=== PATIENT | female | born 1935 | race Caucasian/White ===

== ENCOUNTER 2018-04-22 16:08 | Inpatient (IN) | payer SELFPAY ==
[~2018-04-22] VITALS: Ht 167.6 cm; Wt 80.7 kg
[2018-04-22] MEDS ORDERED: SODIUM CHLORIDE 0.9% 1,000 ML IV ONE (17:09)
[2018-04-22] MEDS ORDERED: ASPIRIN 325MG EC TABLET PO ONE (17:45)
[2018-04-22 18:02] LABS: BASOPHILS % 1.1 % (0.0-2.0); EOSINOPHILS % 1.1 % (0.0-5.0); HEMATOCRIT. 47.7 % (36.0-48.0); HEMOGLOBIN. 15.8 g/dL (12.0-16.0); LYMPHOCYTES % 21.2 % (20.0-50.0); MEAN CORPUSCULAR HEMOGLOBIN 28.7 pg (28.0-32.0); MEAN CORPUSCULAR VOLUME 86.7 fL (81.0-99.0); MEAN PLATELET VOLUME 9.6 fl (7.4-10.4); MONOCYTES % 9.9 % (2.0-8.0); NEUTROPHILS % 66.7 % (40.0-76.0); PLATELET 199 x1000/uL (130-400); RED CELL DISTRIBUTION WIDTH 13.9 % (11.6-14.6)
[2018-04-22 18:09] LABS: INR 1.1; PROTHROMBIN TIME 10.7 sec (9.1-11.1)
[2018-04-22 18:10] LABS: CHLORIDE 102 mEq/L (98-107)
[2018-04-22] MEDS ORDERED: DILTIAZEM HCL 30MG TABLET PO ONE (18:15)
[2018-04-22] MEDS ORDERED: ONDANSETRON HCL 4MG/2ML INJ IV STA (19:20)
[2018-04-22] MEDS ORDERED: MORPHINE SULFATE 4 MG/ML CPJ (NOT FOR IM USE) IV STA (19:20)
[2018-04-22 22:04] LABS: CLARITY URINE CLEAR (CLEAR); COLOR URINE YELLOW (YELLOW); KETONES URINE NEGATIVE (NEGATIVE); LEUKOCYTE ESTERASE URINE 2+ (NEGATIVE); NITRITE URINE NEGATIVE (NEGATIVE); OCCULT BLOOD URINE NEGATIVE (NEGATIVE); PH URINE 6.5 (4.5-8.0); PROTEIN URINE NEGATIVE (NEGATIVE); UROBILINOGEN URINE 0.2 E.U./dL (0.2-1.0)
[2018-04-23] MEDS ORDERED: ONDANSETRON HCL 4MG/2ML INJ IV PRN (00:15)
[2018-04-23] MEDS ORDERED: CLONIDINE 0.1MG TABLET PO PRN (00:15)
[2018-04-23] MEDS ORDERED: MAGNESIUM/ALUMINUM HYDROXIDE/SIMETHICONE 30ML UDC PO PRN (00:15)
[2018-04-23] MEDS ORDERED: ACETAMINOPHEN 325MG TABLET PO PRN (00:15)
[2018-04-23 01:30] VITALS: BP 115/71
[2018-04-23] MEDS ORDERED: SODIUM CHLORIDE 0.45% 1,000 ML IV SCH (02:00)
[2018-04-23 04:00] VITALS: BP 105/58
[2018-04-23 06:50] LABS: CREATINE KINASE 34 IU/L (26-192); CREATINE KINASE MB FRACTION 1.2 ng/mL (0.5-3.6)
[2018-04-23 08:00] VITALS: BP 97/60
[2018-04-23] MEDS ORDERED: METOPROLOL TARTRATE 25MG TABLET PO SCH (09:00)
[2018-04-23 12:00] VITALS: BP 140/76
[2018-04-23 12:39] VITALS: BP 110/75
== END 2018-04-23 13:45 | disposition home or self-care (01) ==
LOC: ER 16:08 → 5WST 20:36 → EDBEDREQ 22:32 → ENRESERV 23:52 → SUPCPDRO 04-23 00:07
PROVIDERS: ADMIT Hospitalist; ATTEND Hospitalist
DX: K83.8 Other specified diseases of biliary tract (principal); I48.91 Unspecified atrial fibrillation; Z87.11 Personal history of peptic ulcer disease; Z90.49 Acquired absence of other specified parts of digestive tract; Z90.710 Acquired absence of both cervix and uterus; Z90.722 Acquired absence of ovaries, bilateral; I25.10 Atherosclerotic heart disease of native coronary artery without angina pectoris; I10 Essential (primary) hypertension; G47.30 Sleep apnea, unspecified
CPT/HCPCS: 36415; 71045; 74176; 74181; 80053; 81003; 82550; 82553; 83690; 83880; 84484; 85025; 85610; 85730; 87086; 93005; 93306; 93970; J2270; J2405; J7030

== ENCOUNTER 2018-09-15 12:51 | Emergency (ER) | payer MEDICAID ==
[~2018-09-15] VITALS: Ht 167.6 cm; Wt 85.0 kg
[2018-09-15 13:05] VITALS: BP 139/99
== END 2018-09-15 15:30 | disposition left against medical advice (07) ==
LOC: ER 13:24
DX: Z53.21 Procedure and treatment not carried out due to patient leaving prior to being seen by health care provider (principal)

== ENCOUNTER 2018-11-12 14:19 | Emergency (ER) | payer MEDICAID ==
[~2018-11-12] VITALS: Ht 167.6 cm; Wt 80.0 kg
[2018-11-12] MEDS ORDERED: KETOROLAC 60MG/2ML VIAL IM ONE (14:45)
[2018-11-12 14:59] LABS: EOSINOPHILS % 1.9 % (0.0-5.0); HEMATOCRIT. 46.7 % (36.0-48.0); HEMOGLOBIN. 15.5 g/dL (12.0-16.0); LYMPHOCYTES % 19.8 % (20.0-50.0); MEAN CORPUSCULAR VOLUME 87.1 fL (81.0-99.0); MEAN PLATELET VOLUME 9.1 fl (7.4-10.4); MONOCYTES % 10.9 % (2.0-8.0); NEUTROPHILS % 66.4 % (40.0-76.0); PLATELET 205 x1000/uL (130-400); RED BLOOD CELL COUNT 5.36 mill/uL (4.2-5.4); RED CELL DISTRIBUTION WIDTH 13.9 % (11.6-14.6)
[2018-11-12 15:06] LABS: CHLORIDE 107 mEq/L (98-107)
[2018-11-12 18:26] VITALS: BP 145/100
== END 2018-11-12 18:46 | disposition home or self-care (01) ==
LOC: ER 14:19
DX: M25.551 Pain in right hip (principal); R10.31 Right lower quadrant pain; I69.398 Other sequelae of cerebral infarction; G93.89 Other specified disorders of brain
CPT/HCPCS: 36415; 70450; 73502; 74176; 80053; 85025; 96372; 99284; J1885

== ENCOUNTER 2018-12-03 12:45 | Emergency (ER) | payer MEDICAID ==
[~2018-12-03] VITALS: Ht 162.6 cm; Wt 80.0 kg
[2018-12-03] MEDS ORDERED: MORPHINE SULFATE 4 MG/ML CPJ (NOT FOR IM USE) IV STA (13:01)
[2018-12-03] MEDS ORDERED: SODIUM CHLORIDE 0.9% 1,000 ML IV ONE (13:01)
[2018-12-03] MEDS ORDERED: ONDANSETRON HCL 4MG/2ML INJ IV STA (13:01)
[2018-12-03 13:20] LABS: BASOPHILS % 1.2 % (0.0-2.0); EOSINOPHILS % 1.4 % (0.0-5.0); HEMOGLOBIN. 16.8 g/dL (12.0-16.0); LYMPHOCYTES % 25.6 % (20.0-50.0); MEAN CORPUSCULAR HEMOGLOBIN 28.6 pg (28.0-32.0); MEAN CORPUSCULAR VOLUME 86.8 fL (81.0-99.0); MEAN PLATELET VOLUME 9.2 fl (7.4-10.4); MONOCYTES % 9.3 % (2.0-8.0); NEUTROPHILS % 62.5 % (40.0-76.0); PLATELET 193 x1000/uL (130-400); RED BLOOD CELL COUNT 5.87 mill/uL (4.2-5.4)
[2018-12-03 13:27] LABS: CHLORIDE 105 mEq/L (98-107); PROTHROMBIN TIME 10.7 sec (9.6-11.0)
[2018-12-03 14:31] LABS: CLARITY URINE CLEAR (CLEAR); COLOR URINE YELLOW (YELLOW); KETONES URINE NEGATIVE (NEGATIVE); LEUKOCYTE ESTERASE URINE TRACE (NEGATIVE); NITRITE URINE NEGATIVE (NEGATIVE); OCCULT BLOOD URINE NEGATIVE (NEGATIVE); PROTEIN URINE NEGATIVE (NEGATIVE); SPECIFIC GRAVITY URINE 1.005 (1.005-1.030); UROBILINOGEN URINE 0.2 E.U./dL (0.2-1.0)
[2018-12-03] MEDS ORDERED: CEFTRIAXONE 1 G PREMIX 50 ML IV NR (15:45)
[2018-12-03 17:21] VITALS: BP 135/91
== END 2018-12-03 18:32 | disposition home or self-care (01) ==
LOC: ER 12:45
DX: S20.211A Contusion of right front wall of thorax, initial encounter (principal); N39.0 Urinary tract infection, site not specified; I48.91 Unspecified atrial fibrillation; R55 Syncope and collapse; Y93.89 Activity, other specified; W01.0XXA Fall on same level from slipping, tripping and stumbling without subsequent striking against object, initial encounter; Y92.018 Other place in single-family (private) house as the place of occurrence of the external cause; K57.90 Diverticulosis of intestine, part unspecified, without perforation or abscess without bleeding; N28.1 Cyst of kidney, acquired; I10 Essential (primary) hypertension
CPT/HCPCS: 36415; 71101; 74176; 80053; 81003; 83690; 85025; 85610; 93005; 96361; 96365; 96375; 99284; J0696; J2270; J2405; J7030; Z7610

== ENCOUNTER 2019-01-03 13:12 | Inpatient (IN) | payer MEDICAID ==
[~2019-01-03] VITALS: Ht 170.2 cm; Wt 81.6 kg
[2019-01-03] MEDS ORDERED: FAMOTIDINE 20MG/2ML VIAL IV STA ×2 (13:41→15:05)
[2019-01-03] MEDS ORDERED: ONDANSETRON HCL 4MG/2ML INJ IV STA (13:41)
[2019-01-03 14:30] LABS: HEMATOCRIT. 49.1 % (36.0-48.0); HEMOGLOBIN. 16.5 g/dL (12.0-16.0); MEAN CORPUSCULAR VOLUME 86.4 fL (81.0-99.0); MEAN PLATELET VOLUME 9.2 fl (7.4-10.4); PLATELET 190 x1000/uL (130-400); RED BLOOD CELL COUNT 5.68 mill/uL (4.2-5.4); RED CELL DISTRIBUTION WIDTH 14.2 % (11.6-14.6)
[2019-01-03 14:38] LABS: CHLORIDE 108 mEq/L (98-107); PROTHROMBIN TIME 10.6 sec (9.6-11.0)
[2019-01-03] MEDS ORDERED: KETOROLAC 30MG/ML VIAL IV ONE (15:00)
[2019-01-03] MEDS ORDERED: VISCOUS LIDOCAINE 2% 15 ML UDC PO STA (15:05)
[2019-01-03] MEDS ORDERED: DICYCLOMINE 10 MG/5 ML ORAL SYR PO STA (15:05)
[2019-01-03] MEDS ORDERED: MAGNESIUM/ALUMINUM HYDROXIDE/SIMETHICONE 30ML UDC PO STA (15:05)
[2019-01-03 15:24] LABS: PLATELET ESTIMATE NORMAL
[2019-01-03 15:51] LABS: CLARITY URINE CLOUDY (CLEAR); COLOR URINE DARK YELLOW (YELLOW); KETONES URINE TRACE (NEGATIVE); LEUKOCYTE ESTERASE URINE 2+ (NEGATIVE); NITRITE URINE NEGATIVE (NEGATIVE); OCCULT BLOOD URINE TRACE (NEGATIVE); PH URINE 5.5 (4.5-8.0); PROTEIN URINE 1+ (NEGATIVE); SPECIFIC GRAVITY URINE 1.031 (1.005-1.030)
[2019-01-03] MEDS ORDERED: CEFTRIAXONE 1 G PREMIX 50 ML IV ONE (16:00)
[2019-01-03] MEDS ORDERED: ENOXAPARIN 60MG/0.6ML SYR SUBCUT ONE (16:15)
[2019-01-03] MEDS ORDERED: NITROGLYCERIN 0.4MG TABLET SL SL PRN (16:30)
[2019-01-03] MEDS ORDERED: IPRATROPIUM/ALBUTEROL 0.5-3(2.5)MG/3ML NEB INH PRN (16:30)
[2019-01-03] MEDS ORDERED: ACETAMINOPHEN 325MG TABLET PO PRN (16:30)
[2019-01-03] MEDS ORDERED: MAGNESIUM/ALUMINUM HYDROXIDE/SIMETHICONE 30ML UDC PO PRN (16:30)
[2019-01-03] MEDS ORDERED: CLONIDINE 0.1MG TABLET PO PRN (16:30)
[2019-01-03] MEDS ORDERED: GUAIFENESIN 200MG/10ML SUGAR FREE UDC PO PRN (16:30)
[2019-01-03] MEDS ORDERED: ONDANSETRON HCL 4MG/2ML INJ IV PRN (16:30)
[2019-01-03] MEDS ORDERED: DOCUSATE SODIUM 100MG CAPSULE PO PRN (16:30)
[2019-01-03] MEDS ORDERED: TRAMADOL 50MG TABLET PO PRN (16:49)
[2019-01-03] MEDS ORDERED: KETOROLAC 15MG/ML VIAL IV PRN (17:00)
[2019-01-03] MEDS: SODIUM CHLORIDE 0.9% 1,000 ML IV SCH (17:21)
[2019-01-03 18:00] VITALS: BP 105/66
[2019-01-03] MEDS: DILTIAZEM HCL 60MG TABLET PO SCH ×2 (18:00→23:54)
[2019-01-03] MEDS ORDERED: ACET650S22 PO (18:37)
[2019-01-03] MEDS ORDERED: PANT40TA4 PO (18:37)
[2019-01-03] MEDS ORDERED: CLOP75TA4 PO (18:37)
[2019-01-03] MEDS ORDERED: FAMO20TA8 PO (18:37)
[2019-01-03] MEDS: METOCLOPRAMIDE 10MG/10 ML UDC PO SCH (18:48)
[2019-01-03] MEDS ORDERED: LEVOFLOXACIN 500MG PREMIX 100 ML IV SCH (20:00)
[2019-01-03] MEDS: ASCORBIC ACID 500 MG TABLET PO SCH (20:48)
[2019-01-03] MEDS: SUCRALFATE 1 G/10 ML UDC PO SCH (20:50)
[2019-01-03] MEDS ORDERED: ZOLPIDEM TARTRATE 5MG TABLET PO PRN (21:00)
[2019-01-04 01:33] VITALS: BP 128/78
[2019-01-04 04:00] VITALS: BP 99/60
[2019-01-04] MEDS: ENOXAPARIN 80MG/0.8ML SYR SUBCUT SCH ×2 (04:44→16:46)
[2019-01-04] MEDS: DILTIAZEM HCL 60MG TABLET PO SCH ×3 (06:00→17:37)
[2019-01-04 08:00] VITALS: BP 108/61
[2019-01-04] MEDS: FAMOTIDINE 20MG TABLET PO SCH (09:26)
[2019-01-04] MEDS: ASCORBIC ACID 500 MG TABLET PO SCH ×2 (09:27→20:27)
[2019-01-04] MEDS: ASPIRIN 325MG EC TABLET PO SCH (09:27)
[2019-01-04] MEDS: ZINC SULFATE 220 MG ( 50 ) CAPSULE PO SCH (09:27)
[2019-01-04] MEDS: SUCRALFATE 1 G/10 ML UDC PO SCH ×4 (09:35→20:27)
[2019-01-04] MEDS: METOCLOPRAMIDE 10MG/10 ML UDC PO SCH ×3 (09:35→17:44)
[2019-01-04 12:00] VITALS: BP 101/69
[2019-01-04] MEDS: SODIUM CHLORIDE 0.9% 1,000 ML IV SCH (12:24)
[2019-01-04 16:00] VITALS: BP 118/77
[2019-01-04] MEDS ORDERED: CEFTRIAXONE 1 G PREMIX 50 ML IV SCH (16:30)
[2019-01-04] MEDS: CEFTRIAXONE 1 G PREMIX 50 ML IV SCH (18:30)
[2019-01-04 20:00] VITALS: BP 108/78
[2019-01-04] MEDS ORDERED: LEVOFLOXACIN 250MG PREMIX 50 ML IV SCH (20:00)
[2019-01-05] VITALS: BP 122/74
[2019-01-05] MEDS: DILTIAZEM HCL 60MG TABLET PO SCH ×4 (00:11→17:19)
[2019-01-05] MEDS: SODIUM CHLORIDE 0.9% 1,000 ML IV SCH ×3 (02:15→17:21)
[2019-01-05 04:00] VITALS: BP 104/64
[2019-01-05] MEDS: ENOXAPARIN 80MG/0.8ML SYR SUBCUT SCH ×2 (04:34→17:06)
[2019-01-05 07:55] VITALS: BP 119/67
[2019-01-05] MEDS: SUCRALFATE 1 G/10 ML UDC PO SCH ×3 (09:06→17:05)
[2019-01-05] MEDS: ASPIRIN 325MG EC TABLET PO SCH (09:06)
[2019-01-05] MEDS: FAMOTIDINE 20MG TABLET PO SCH (09:06)
[2019-01-05] MEDS: ZINC SULFATE 220 MG ( 50 ) CAPSULE PO SCH (09:06)
[2019-01-05] MEDS: METOCLOPRAMIDE 10MG/10 ML UDC PO SCH ×3 (09:06→17:05)
[2019-01-05] MEDS: ASCORBIC ACID 500 MG TABLET PO SCH (09:07)
[2019-01-05 12:39] VITALS: BP 108/68
[2019-01-05 13:13] VITALS: BP 119/95
[2019-01-05 16:00] VITALS: BP 102/60
[2019-01-05] MEDS: CEFTRIAXONE 1 G PREMIX 50 ML IV SCH (17:21)
== END 2019-01-05 19:00 | disposition home or self-care (01) | DRG 241 ==
LOC: ER 13:12 → 7WST 16:03 → EDBEDREQ 16:09 → EDBEDREQSVC 16:09 → ENRESERV 16:15
PROVIDERS: ADMIT Internal Medicine; ATTEND Internal Medicine
DX: K29.70 Gastritis, unspecified, without bleeding (principal); I48.91 Unspecified atrial fibrillation; N39.0 Urinary tract infection, site not specified; I10 Essential (primary) hypertension; R10.9 Unspecified abdominal pain; Z90.49 Acquired absence of other specified parts of digestive tract; Z91.81 History of falling
CPT/HCPCS: 36415; 71045; 80061; 82962; 83036; 84484; 87077; 87186; 87493; 93005; 93970; 99285; J0696; J1650; J1885; J1956; J2405; J3490; J8597

== ENCOUNTER 2019-01-14 13:29 | Inpatient (IN) | payer MEDICAID, OTHER ==
[~2019-01-14] VITALS: Ht 170.2 cm; Wt 83.9 kg
[~2019-01-14 13:29] MED LIST: ACET650S22 PO; CLOP75TA4 PO; FAMO20TA8 PO; PANT40TA4 PO
[2019-01-14 14:12] LABS: HEMATOCRIT. 50.2 % (36.0-48.0); HEMOGLOBIN. 16.7 g/dL (12.0-16.0); MEAN CORPUSCULAR VOLUME 86.8 fL (81.0-99.0); MEAN PLATELET VOLUME 9.7 fl (7.4-10.4); PLATELET 231 x1000/uL (130-400); RED BLOOD CELL COUNT 5.78 mill/uL (4.2-5.4); RED CELL DISTRIBUTION WIDTH 14.3 % (11.6-14.6)
[2019-01-14 14:15] LABS: CHLORIDE 105 mEq/L (98-107)
[2019-01-14 14:16] LABS: PROTHROMBIN TIME 10.7 sec (9.6-11.0)
[2019-01-14 14:20] LABS: ETHANOL BLOOD < 10 mg/dL
[2019-01-14 14:23] LABS: LDL CHOLESTEROL 143 mg/dL (5-100)
[2019-01-14 15:18] LABS: PLATELET ESTIMATE NORMAL
[2019-01-14] MEDS ORDERED: MORPHINE SULFATE 4 MG/ML CPJ (NOT FOR IM USE) IV ONE (16:00)
[2019-01-14] MEDS ORDERED: DIPHENHYDRAMINE 50MG/ML VIAL IV ONE (16:45)
[2019-01-14 16:47] LABS: CLARITY URINE CLEAR (CLEAR); COLOR URINE YELLOW (YELLOW); KETONES URINE NEGATIVE (NEGATIVE); LEUKOCYTE ESTERASE URINE TRACE (NEGATIVE); NITRITE URINE NEGATIVE (NEGATIVE); OCCULT BLOOD URINE NEGATIVE (NEGATIVE); PH URINE 6.5 (4.5-8.0); PROTEIN URINE NEGATIVE (NEGATIVE); SPECIFIC GRAVITY URINE 1.006 (1.005-1.030); UROBILINOGEN URINE 0.2 E.U./dL (0.2-1.0)
[2019-01-14 17:07] LABS: *AMPHETAMINES SCREEN URINE NEGATIVE (NEGATIVE); *BARBITURATES SCREEN URINE NEGATIVE (NEGATIVE); *BENZODIAZEPINES SCREEN URINE NEGATIVE (NEGATIVE); *COCAINE SCREEN URINE NEGATIVE (NEGATIVE)
[2019-01-14 17:08] LABS: CANNABINOID URINE SCREEN NEGATIVE (NEGATIVE); METHADONE URINE SCREEN NEGATIVE (NEGATIVE); OPIATES URINE SCREEN NEGATIVE (NEGATIVE); PHENCYCLIDINE URINE SCREEN NEGATIVE (NEGATIVE)
[2019-01-14] MEDS ORDERED: GUAIFENESIN 200MG/10ML SUGAR FREE UDC PO PRN (21:15)
[2019-01-14] MEDS ORDERED: CLONIDINE 0.1MG TABLET PO PRN (21:15)
[2019-01-14] MEDS ORDERED: IPRATROPIUM/ALBUTEROL 0.5-3(2.5)MG/3ML NEB INH PRN (21:15)
[2019-01-14] MEDS ORDERED: LEVOFLOXACIN 500MG PREMIX 100 ML IV SCH (21:15)
[2019-01-14] MEDS ORDERED: MAGNESIUM/ALUMINUM HYDROXIDE/SIMETHICONE 30ML UDC PO PRN (21:15)
[2019-01-14] MEDS ORDERED: ACETAMINOPHEN 325MG TABLET PO PRN (21:15)
[2019-01-14] MEDS ORDERED: NITROGLYCERIN 0.4MG TABLET SL SL PRN (21:15)
[2019-01-14] MEDS ORDERED: ZOLPIDEM TARTRATE 5MG TABLET PO PRN (21:30)
[2019-01-14] MEDS ORDERED: TRAMADOL 50MG TABLET PO PRN (21:30)
[2019-01-14 23:00] VITALS: BP 116/83
[2019-01-15] MEDS: ATORVASTATIN CALCIUM 20MG TABLET PO SCH ×2 (00:14→20:39)
[2019-01-15] MEDS: LEVOFLOXACIN 250MG PREMIX 50 ML IV SCH ×2 (00:15→23:29)
[2019-01-15] MEDS: ENOXAPARIN 100MG/ML SYR SUBCUT SCH ×3 (00:15→22:47)
[2019-01-15] MEDS ORDERED: CEFTRIAXONE 1 G PREMIX 50 ML IV SCH (01:00)
[2019-01-15 04:00] VITALS: BP 115/70
[2019-01-15] MEDS: SUCRALFATE 1 G/10 ML UDC PO SCH ×4 (06:21→20:39)
[2019-01-15 08:00] VITALS: BP 124/76
[2019-01-15] MEDS: DOCUSATE SODIUM 100MG CAPSULE PO PRN (08:35)
[2019-01-15] MEDS: ZINC SULFATE 220 MG ( 50 ) CAPSULE PO SCH (08:36)
[2019-01-15] MEDS: CLOPIDOGREL 75MG TABLET PO SCH (08:36)
[2019-01-15] MEDS: ASCORBIC ACID 500 MG TABLET PO SCH ×2 (08:36→20:39)
[2019-01-15] MEDS: FAMOTIDINE 20MG TABLET PO SCH (08:36)
[2019-01-15] MEDS ORDERED: FAMOTIDINE 20MG TABLET PO SCH (09:00)
[2019-01-15 12:00] VITALS: BP 124/76
[2019-01-15 17:18] VITALS: BP 136/59
[2019-01-15 20:00] VITALS: BP 123/75
[2019-01-15 20:53] LABS: T4 FREE 0.99 ng/dL (0.76-1.46)
[2019-01-15 21:02] LABS: FOLIC ACID (FOLATE) SERUM 16.9 ng/mL (>5.38)
[2019-01-16 00:15] VITALS: BP 127/93
[2019-01-16] MEDS: CEFTRIAXONE 1 G PREMIX 50 ML IV SCH (01:51)
[2019-01-16 04:00] VITALS: BP 134/76
[2019-01-16] MEDS: SUCRALFATE 1 G/10 ML UDC PO SCH ×4 (06:02→20:42)
[2019-01-16 08:00] VITALS: BP 127/86
[2019-01-16] MEDS: ASCORBIC ACID 500 MG TABLET PO SCH ×2 (09:25→20:42)
[2019-01-16] MEDS: FAMOTIDINE 20MG TABLET PO SCH (09:25)
[2019-01-16] MEDS: CLOPIDOGREL 75MG TABLET PO SCH (09:25)
[2019-01-16] MEDS: ZINC SULFATE 220 MG ( 50 ) CAPSULE PO SCH (09:25)
[2019-01-16 12:00] VITALS: BP 122/76
[2019-01-16] MEDS: ONDANSETRON HCL 4MG/2ML INJ IV PRN (12:16)
[2019-01-16] MEDS: ENOXAPARIN 100MG/ML SYR SUBCUT SCH ×2 (12:17→23:04)
[2019-01-16 16:00] VITALS: BP 122/87
[2019-01-16 20:00] VITALS: BP 124/61
[2019-01-16] MEDS: ATORVASTATIN CALCIUM 20MG TABLET PO SCH (20:42)
[2019-01-16] MEDS: LEVOFLOXACIN 250MG PREMIX 50 ML IV SCH (23:05)
[2019-01-17] VITALS: BP 114/69
[2019-01-17] MEDS: CEFTRIAXONE 1 G PREMIX 50 ML IV SCH (00:35)
[2019-01-17] MEDS: ONDANSETRON HCL 4MG/2ML INJ IV PRN (03:42)
[2019-01-17 04:00] VITALS: BP 115/79
[2019-01-17] MEDS: SUCRALFATE 1 G/10 ML UDC PO SCH ×4 (05:55→21:16)
[2019-01-17 08:25] VITALS: BP 108/68
[2019-01-17] MEDS: ASCORBIC ACID 500 MG TABLET PO SCH ×2 (09:11→21:16)
[2019-01-17] MEDS: FAMOTIDINE 20MG TABLET PO SCH (09:11)
[2019-01-17] MEDS: ZINC SULFATE 220 MG ( 50 ) CAPSULE PO SCH (09:11)
[2019-01-17] MEDS: CLOPIDOGREL 75MG TABLET PO SCH (09:11)
[2019-01-17] MEDS: DOCUSATE SODIUM 100MG CAPSULE PO PRN (09:15)
[2019-01-17] MEDS ORDERED: NA PHOS,M-B/NA PHOS,DI-BA ENEMA 118ML PR NR (10:15)
[2019-01-17] MEDS ORDERED: BISACODYL 10MG SUPP PR PRN (10:15)
[2019-01-17] MEDS ORDERED: NA PHOS,M-B/NA PHOS,DI-BA ENEMA 118ML PR PRN (10:30)
[2019-01-17] MEDS: LACTULOSE 20G/30ML UDC PO SCH ×3 (10:58→16:49)
[2019-01-17 11:48] VITALS: BP 120/82
[2019-01-17 15:14] VITALS: BP 114/72
[2019-01-17] MEDS: DOCUSATE SODIUM 100MG CAPSULE PO SCH (16:49)
[2019-01-17] MEDS: RIVAROXABAN 20 MG TABLET PO SCH (16:50)
[2019-01-17 20:00] VITALS: BP 113/70
[2019-01-17] MEDS ORDERED: POLYETHYLENE GLYCOL 3350 (17GM) 1 DOSE PACK PO SCH (21:00)
[2019-01-17] MEDS: ATORVASTATIN CALCIUM 20MG TABLET PO SCH (21:16)
[2019-01-18] VITALS: BP 107/74
[2019-01-18] MEDS: LEVOFLOXACIN 250MG PREMIX 50 ML IV SCH ×2 (00:31→23:22)
[2019-01-18] MEDS: CEFTRIAXONE 1 G PREMIX 50 ML IV SCH (01:31)
[2019-01-18 04:00] VITALS: BP 97/65
[2019-01-18] MEDS: SUCRALFATE 1 G/10 ML UDC PO SCH ×4 (05:46→20:55)
[2019-01-18 08:16] VITALS: BP 129/72
[2019-01-18] MEDS: ZINC SULFATE 220 MG ( 50 ) CAPSULE PO SCH (09:32)
[2019-01-18] MEDS: DOCUSATE SODIUM 100MG CAPSULE PO SCH ×2 (09:32→16:21)
[2019-01-18] MEDS: ONDANSETRON HCL 4MG/2ML INJ IV PRN (09:32)
[2019-01-18] MEDS: FAMOTIDINE 20MG TABLET PO SCH (09:32)
[2019-01-18] MEDS: ASCORBIC ACID 500 MG TABLET PO SCH ×2 (09:32→20:55)
[2019-01-18 11:37] VITALS: BP 140/97
[2019-01-18] MEDS: METOCLOPRAMIDE HCL 5MG TABLET PO SCH ×3 (12:44→20:55)
[2019-01-18 15:39] VITALS: BP 104/71
[2019-01-18] MEDS: RIVAROXABAN 20 MG TABLET PO SCH (16:21)
[2019-01-18 20:00] VITALS: BP 112/73
[2019-01-18] MEDS: ATORVASTATIN CALCIUM 20MG TABLET PO SCH (20:55)
[2019-01-19] VITALS: BP 118/76
[2019-01-19] MEDS: CEFTRIAXONE 1 G PREMIX 50 ML IV SCH (01:39)
[2019-01-19 04:00] VITALS: BP 116/70
[2019-01-19] MEDS: SUCRALFATE 1 G/10 ML UDC PO SCH ×4 (06:21→20:54)
[2019-01-19] MEDS: METOCLOPRAMIDE HCL 5MG TABLET PO SCH ×4 (06:21→20:54)
[2019-01-19 08:00] VITALS: BP 146/92
[2019-01-19] MEDS: ASCORBIC ACID 500 MG TABLET PO SCH ×2 (09:29→20:54)
[2019-01-19] MEDS: ZINC SULFATE 220 MG ( 50 ) CAPSULE PO SCH (09:29)
[2019-01-19] MEDS: FAMOTIDINE 20MG TABLET PO SCH (09:29)
[2019-01-19] MEDS: DOCUSATE SODIUM 100MG CAPSULE PO SCH ×2 (09:29→17:31)
[2019-01-19 10:30] LABS: CHLORIDE 106 mEq/L (98-107)
[2019-01-19 10:31] LABS: BASOPHILS % 1.3 % (0.0-2.0); EOSINOPHILS % 3.5 % (0.0-5.0); HEMATOCRIT. 46.5 % (36.0-48.0); HEMOGLOBIN. 15.4 g/dL (12.0-16.0); LYMPHOCYTES % 24.4 % (20.0-50.0); MEAN CORPUSCULAR HEMOGLOBIN 28.7 pg (28.0-32.0); MEAN CORPUSCULAR VOLUME 86.8 fL (81.0-99.0); MEAN PLATELET VOLUME 9.8 fl (7.4-10.4); MONOCYTES % 11.6 % (2.0-8.0); NEUTROPHILS % 59.2 % (40.0-76.0); PLATELET 194 x1000/uL (130-400); RED BLOOD CELL COUNT 5.35 mill/uL (4.2-5.4); RED CELL DISTRIBUTION WIDTH 14.2 % (11.6-14.6)
[2019-01-19 12:00] VITALS: BP 110/59
[2019-01-19 16:00] VITALS: BP 121/91
[2019-01-19] MEDS: RIVAROXABAN 20 MG TABLET PO SCH (17:31)
[2019-01-19 20:00] VITALS: BP 116/87
[2019-01-19] MEDS: ATORVASTATIN CALCIUM 20MG TABLET PO SCH (20:54)
[2019-01-20] VITALS: BP 126/74
[2019-01-20] MEDS: CEFTRIAXONE 1 G PREMIX 50 ML IV SCH (02:05)
[2019-01-20] MEDS: LEVOFLOXACIN 250MG PREMIX 50 ML IV SCH (02:47)
[2019-01-20 04:00] VITALS: BP 118/82
[2019-01-20] MEDS: METOCLOPRAMIDE HCL 5MG TABLET PO SCH ×4 (06:45→20:34)
[2019-01-20] MEDS: SUCRALFATE 1 G/10 ML UDC PO SCH ×4 (06:45→20:34)
[2019-01-20 08:00] VITALS: BP 122/60
[2019-01-20] MEDS: FAMOTIDINE 20MG TABLET PO SCH (08:15)
[2019-01-20] MEDS: DOCUSATE SODIUM 100MG CAPSULE PO SCH ×2 (08:15→16:51)
[2019-01-20] MEDS: ASCORBIC ACID 500 MG TABLET PO SCH ×2 (08:15→20:34)
[2019-01-20] MEDS: ZINC SULFATE 220 MG ( 50 ) CAPSULE PO SCH (08:15)
[2019-01-20 12:00] VITALS: BP 134/74
[2019-01-20 16:00] VITALS: BP 141/88
[2019-01-20] MEDS: RIVAROXABAN 20 MG TABLET PO SCH (16:51)
[2019-01-20 20:00] VITALS: BP 115/83
[2019-01-20] MEDS: ATORVASTATIN CALCIUM 20MG TABLET PO SCH (20:34)
[2019-01-21] VITALS: BP_SYST 126; BP_SYST 155; BP_DIAS 84; BP_DIAS 99
[2019-01-21] MEDS: LEVOFLOXACIN 250MG PREMIX 50 ML IV SCH (00:09)
[2019-01-21] MEDS: CEFTRIAXONE 1 G PREMIX 50 ML IV SCH (00:45)
[2019-01-21 04:00] VITALS: BP 133/82
[2019-01-21] MEDS: SUCRALFATE 1 G/10 ML UDC PO SCH ×4 (06:02→20:49)
[2019-01-21] MEDS: METOCLOPRAMIDE HCL 5MG TABLET PO SCH ×4 (06:02→20:49)
[2019-01-21 08:00] VITALS: BP 133/72
[2019-01-21] MEDS: ASCORBIC ACID 500 MG TABLET PO SCH ×2 (08:45→20:49)
[2019-01-21] MEDS: ZINC SULFATE 220 MG ( 50 ) CAPSULE PO SCH (08:45)
[2019-01-21] MEDS: FAMOTIDINE 20MG TABLET PO SCH (08:45)
[2019-01-21] MEDS: DOCUSATE SODIUM 100MG CAPSULE PO SCH ×2 (08:45→16:21)
[2019-01-21 12:00] VITALS: BP 134/97
[2019-01-21 16:00] VITALS: BP 128/83
[2019-01-21] MEDS: RIVAROXABAN 20 MG TABLET PO SCH (17:23)
[2019-01-21 20:00] VITALS: BP 131/92
[2019-01-21] MEDS: ATORVASTATIN CALCIUM 20MG TABLET PO SCH (20:49)
[2019-01-22] VITALS (7 sets, daily range): BP systolic 109–155; BP diastolic 72–99
[2019-01-22] MEDS: CEFTRIAXONE 1 G PREMIX 50 ML IV SCH (01:58)
[2019-01-22] MEDS: LEVOFLOXACIN 250MG PREMIX 50 ML IV SCH (01:58)
[2019-01-22] MEDS: SUCRALFATE 1 G/10 ML UDC PO SCH ×4 (07:51→20:50)
[2019-01-22] MEDS: METOCLOPRAMIDE HCL 5MG TABLET PO SCH ×4 (07:51→20:50)
[2019-01-22] MEDS: FAMOTIDINE 20MG TABLET PO SCH (08:07)
[2019-01-22] MEDS: DOCUSATE SODIUM 100MG CAPSULE PO SCH ×2 (08:07→15:51)
[2019-01-22] MEDS: ASCORBIC ACID 500 MG TABLET PO SCH ×2 (08:07→20:50)
[2019-01-22] MEDS: ZINC SULFATE 220 MG ( 50 ) CAPSULE PO SCH (08:07)
[2019-01-22] MEDS: RIVAROXABAN 20 MG TABLET PO SCH (15:50)
[2019-01-22] MEDS: ATORVASTATIN CALCIUM 20MG TABLET PO SCH (20:50)
[2019-01-23] VITALS: BP 134/85
[2019-01-23 04:00] VITALS: BP 144/96
[2019-01-23] MEDS: METOCLOPRAMIDE HCL 5MG TABLET PO SCH (06:39)
[2019-01-23] MEDS: SUCRALFATE 1 G/10 ML UDC PO SCH (06:43)
[2019-01-23] MEDS ORDERED: CYANOCOBALAMIN 1000MCG/ML VIAL IM SCH (07:15)
[2019-01-23 08:00] VITALS: BP 136/89
[2019-01-23] MEDS: DOCUSATE SODIUM 100MG CAPSULE PO SCH (08:11)
[2019-01-23] MEDS: ASCORBIC ACID 500 MG TABLET PO SCH (08:11)
[2019-01-23] MEDS: ZINC SULFATE 220 MG ( 50 ) CAPSULE PO SCH (08:11)
[2019-01-23] MEDS: FAMOTIDINE 20MG TABLET PO SCH (08:11)
[2019-01-24 19:11] LABS: 25-HYDROXY VITAMIN D3 11 ng/mL (.)
== END 2019-01-23 10:53 | disposition home or self-care (01) | DRG 45 ==
LOC: ER 13:29 → 6WST 20:18 → EDBEDREQ 20:37 → EDBEDREQSVC 20:37 → EDBEDREQTM 20:37 → ENRESERV 21:06 → 5WST 01-15 11:52 → 6EST 01-21 11:40
PROVIDERS: ADMIT Internal Medicine; ATTEND Internal Medicine
DX: I63.81 Other cerebral infarction due to occlusion or stenosis of small artery (principal); G81.94 Hemiplegia, unspecified affecting left nondominant side; I48.91 Unspecified atrial fibrillation; D75.1 Secondary polycythemia; R13.10 Dysphagia, unspecified; R73.9 Hyperglycemia, unspecified; R47.81 Slurred speech; K21.9 Gastro-esophageal reflux disease without esophagitis; E78.5 Hyperlipidemia, unspecified; N39.0 Urinary tract infection, site not specified; I10 Essential (primary) hypertension; E78.00 Pure hypercholesterolemia, unspecified; Z53.20 Procedure and treatment not carried out because of patient's decision for unspecified reasons; Z90.49 Acquired absence of other specified parts of digestive tract; Z79.899 Other long term (current) drug therapy
CPT/HCPCS: 36415; 70544; 70551; 71045; 80061; 80305; 80320; 82306; 82607; 82746; 82962; 83036; 83721; 84439; 84443; 84481; 84484; 92523; 92610; 93005; 93306; 93880; 97112; 97116; 97162; 97166; 97530; 97535; 99291; J0696; J1200; J1650; J1956; J2270; J2405; J3420; J7050; J8597; G0480

== ENCOUNTER 2019-03-02 12:46 | Inpatient (IN) | payer MEDICAID ==
[~2019-03-02] VITALS: Ht 165.1 cm; Wt 80.7 kg
[2019-03-02] MEDS ORDERED: ONDANSETRON HCL 4MG/2ML INJ IV STA (13:13)
[2019-03-02] MEDS ORDERED: SODIUM CHLORIDE 0.9% 1,000 ML IV ONE (13:13)
[2019-03-02] MEDS ORDERED: MAGNESIUM/ALUMINUM HYDROXIDE/SIMETHICONE 30ML UDC PO STA (13:40)
[2019-03-02 13:43] LABS: BASOPHILS % 0.7 % (0.0-2.0); EOSINOPHILS % 0.6 % (0.0-5.0); HEMATOCRIT. 49.5 % (36.0-48.0); HEMOGLOBIN. 17.1 g/dL (12.0-16.0); LYMPHOCYTES % 15.2 % (20.0-50.0); MEAN CORPUSCULAR HEMOGLOBIN 29.5 pg (28.0-32.0); MEAN CORPUSCULAR VOLUME 85.4 fL (81.0-99.0); MEAN PLATELET VOLUME 9.7 fl (7.4-10.4); MONOCYTES % 8.4 % (2.0-8.0); NEUTROPHILS % 75.1 % (40.0-76.0); PLATELET 183 x1000/uL (130-400); RED CELL DISTRIBUTION WIDTH 14.1 % (11.6-14.6)
[2019-03-02] MEDS ORDERED: FAMOTIDINE 20MG/2ML VIAL IV ONE (13:45)
[2019-03-02 13:48] LABS: CHLORIDE 102 mEq/L (98-107); INR 1.1; PROTHROMBIN TIME 11.2 sec (9.6-11.0)
[2019-03-02 17:43] LABS: CLARITY URINE CLEAR (CLEAR); COLOR URINE YELLOW (YELLOW); KETONES URINE NEGATIVE (NEGATIVE); LEUKOCYTE ESTERASE URINE TRACE (NEGATIVE); NITRITE URINE NEGATIVE (NEGATIVE); OCCULT BLOOD URINE NEGATIVE (NEGATIVE); PROTEIN URINE NEGATIVE (NEGATIVE); SPECIFIC GRAVITY URINE 1.002 (1.005-1.030); UROBILINOGEN URINE 0.2 E.U./dL (0.2-1.0)
[2019-03-02] MEDS ORDERED: CEFTRIAXONE 1 G PREMIX 50 ML IV NR (18:00)
[2019-03-02] MEDS ORDERED: GUAIFENESIN 200MG/10ML SUGAR FREE UDC PO PRN (18:30)
[2019-03-02] MEDS ORDERED: ONDANSETRON HCL 4MG/2ML INJ IV PRN (18:30)
[2019-03-02] MEDS ORDERED: DOCUSATE SODIUM 100MG CAPSULE PO PRN (18:30)
[2019-03-02] MEDS ORDERED: ACETAMINOPHEN 325MG TABLET PO PRN (18:30)
[2019-03-02] MEDS ORDERED: TRAMADOL 50MG TABLET PO PRN (18:30)
[2019-03-02] MEDS ORDERED: MAGNESIUM/ALUMINUM HYDROXIDE/SIMETHICONE 30ML UDC PO PRN (18:30)
[2019-03-02] MEDS ORDERED: CLONIDINE 0.1MG TABLET PO PRN (18:30)
[2019-03-02] MEDS ORDERED: ZOLPIDEM TARTRATE 5MG TABLET PO PRN (18:30)
[2019-03-02] MEDS ORDERED: IPRATROPIUM/ALBUTEROL 0.5-3(2.5)MG/3ML NEB INH PRN (18:30)
[2019-03-02] MEDS ORDERED: NITROGLYCERIN 0.4MG TABLET SL SL PRN (18:30)
[2019-03-02 22:05] VITALS: BP 146/101
[2019-03-03] VITALS: BP 143/108
[2019-03-03] MEDS: CEFTRIAXONE 1 G PREMIX 50 ML IV SCH ×2 (00:29→22:47)
[2019-03-03 04:00] VITALS: BP 146/99
[2019-03-03] MEDS: METOCLOPRAMIDE 10MG/10 ML UDC PO SCH ×3 (06:25→18:45)
[2019-03-03] MEDS: SUCRALFATE 1 G/10 ML UDC PO SCH ×4 (06:26→22:17)
[2019-03-03 08:00] VITALS: BP 134/84
[2019-03-03] MEDS: DILTIAZEM HCL 30MG TABLET PO SCH ×4 (08:52→21:00)
[2019-03-03] MEDS: CLOPIDOGREL 75MG TABLET PO SCH (08:52)
[2019-03-03] MEDS: FAMOTIDINE 20MG TABLET PO SCH (08:52)
[2019-03-03 09:27] LABS: *AMPHETAMINES SCREEN URINE NEGATIVE (NEGATIVE)
[2019-03-03 09:28] LABS: *BARBITURATES SCREEN URINE NEGATIVE (NEGATIVE); *BENZODIAZEPINES SCREEN URINE NEGATIVE (NEGATIVE); *COCAINE SCREEN URINE NEGATIVE (NEGATIVE); OPIATES URINE SCREEN NEGATIVE (NEGATIVE)
[2019-03-03 09:30] LABS: CANNABINOID URINE SCREEN NEGATIVE (NEGATIVE); METHADONE URINE SCREEN NEGATIVE (NEGATIVE); PHENCYCLIDINE URINE SCREEN NEGATIVE (NEGATIVE)
[2019-03-03 12:27] VITALS: BP 96/62
[2019-03-03 18:00] VITALS: BP 142/97
[2019-03-03] MEDS: RIVAROXABAN 15 MG TABLET PO SCH (18:46)
[2019-03-03 20:00] VITALS: BP 105/70
[2019-03-03] MEDS ORDERED: ATORVASTATIN CALCIUM 10MG TABLET PO SCH (21:00)
[2019-03-04] VITALS: BP 115/67
[2019-03-04 04:00] VITALS: BP 134/66
[2019-03-04] MEDS: SUCRALFATE 1 G/10 ML UDC PO SCH ×3 (06:27→17:55)
[2019-03-04] MEDS: METOCLOPRAMIDE 10MG/10 ML UDC PO SCH ×3 (06:28→17:57)
[2019-03-04 08:00] VITALS: BP_SYST 113; BP_SYST 114; BP_DIAS 69; BP_DIAS 75
[2019-03-04] MEDS: CLOPIDOGREL 75MG TABLET PO SCH (11:09)
[2019-03-04] MEDS: DILTIAZEM HCL 30MG TABLET PO SCH ×3 (11:10→17:00)
[2019-03-04] MEDS: FAMOTIDINE 20MG TABLET PO SCH (11:10)
[2019-03-04 12:00] VITALS: BP 118/96
[2019-03-04 15:03] VITALS: BP 118/71
[2019-03-04 16:00] VITALS: BP 101/71
[2019-03-04] MEDS: RIVAROXABAN 15 MG TABLET PO SCH (17:56)
== END 2019-03-04 18:55 | disposition home or self-care (01) | DRG 241 ==
LOC: ER 12:46 → 6EST 17:24 → EDBEDREQ 18:04 → ENRESERV 19:54
PROVIDERS: ADMIT Internal Medicine; ATTEND Internal Medicine
DX: K29.70 Gastritis, unspecified, without bleeding (principal); I48.91 Unspecified atrial fibrillation; N39.0 Urinary tract infection, site not specified; K31.84 Gastroparesis; R74.0 Nonspecific elevation of levels of transaminase and lactic acid dehydrogenase [LDH]; R79.89 Other specified abnormal findings of blood chemistry; I10 Essential (primary) hypertension; Z79.02 Long term (current) use of antithrombotics/antiplatelets; Z86.73 Personal history of transient ischemic attack (TIA), and cerebral infarction without residual deficits; Z90.49 Acquired absence of other specified parts of digestive tract; Z90.710 Acquired absence of both cervix and uterus; Z79.899 Other long term (current) drug therapy; Z88.5 Allergy status to narcotic agent
CPT/HCPCS: 36415; 71045; 74176; 80061; 80305; 80320; 83036; 83880; 84484; 93005; 93970; 96361; 96374; 96375; 99285; J0696; J2405; J3490; J7030; J8597; G0480

== ENCOUNTER 2019-03-06 13:18 | Emergency (ER) | payer MEDICAID ==
[~2019-03-06] VITALS: Ht 157.5 cm; Wt 100.0 kg
[2019-03-06] MEDS ORDERED: ONDANSETRON HCL 4MG/2ML INJ IV STA (14:22)
[2019-03-06] MEDS ORDERED: VISCOUS LIDOCAINE 2% 15 ML UDC PO STA (14:22)
[2019-03-06] MEDS ORDERED: FAMOTIDINE 20MG/2ML VIAL IV STA (14:22)
[2019-03-06] MEDS ORDERED: MAGNESIUM/ALUMINUM HYDROXIDE/SIMETHICONE 30ML UDC PO STA (14:22)
[2019-03-06] MEDS ORDERED: MINERAL OIL ENEMA 133ML PR ONE (15:30)
[2019-03-06 16:09] LABS: CHLORIDE 102 mEq/L (98-107)
[2019-03-06 16:12] LABS: BASOPHILS % 0.7 % (0.0-2.0); EOSINOPHILS % 2.7 % (0.0-5.0); HEMATOCRIT. 44.8 % (36.0-48.0); HEMOGLOBIN. 15.5 g/dL (12.0-16.0); MEAN CORPUSCULAR HEMOGLOBIN 29.3 pg (28.0-32.0); MEAN CORPUSCULAR VOLUME 84.7 fL (81.0-99.0); MEAN PLATELET VOLUME 9.9 fl (7.4-10.4); MONOCYTES % 14.6 % (2.0-8.0); PLATELET 172 x1000/uL (130-400); RED BLOOD CELL COUNT 5.29 mill/uL (4.2-5.4); RED CELL DISTRIBUTION WIDTH 14.2 % (11.6-14.6)
[2019-03-06 16:15] LABS: INR 1.1
[2019-03-06 21:20] VITALS: BP 136/91
== END 2019-03-06 21:52 | disposition home or self-care (01) ==
LOC: ER 13:18
DX: K56.41 Fecal impaction (principal); K57.90 Diverticulosis of intestine, part unspecified, without perforation or abscess without bleeding; G89.29 Other chronic pain; I48.91 Unspecified atrial fibrillation; I10 Essential (primary) hypertension; Z86.73 Personal history of transient ischemic attack (TIA), and cerebral infarction without residual deficits; Z90.49 Acquired absence of other specified parts of digestive tract; Z88.6 Allergy status to analgesic agent; Z79.899 Other long term (current) drug therapy
CPT/HCPCS: 36415; 74176; 80053; 83690; 85025; 85610; 96374; 96375; 99284; J2405; J3490

== ENCOUNTER 2019-05-29 12:47 | Emergency (ER) | payer MEDICAID, OTHER ==
[~2019-05-29] VITALS: Ht 165.1 cm; Wt 68.0 kg
[2019-05-29] MEDS ORDERED: MAGNESIUM/ALUMINUM HYDROXIDE/SIMETHICONE 30ML UDC PO STA (14:00)
[2019-05-29] MEDS ORDERED: METOCLOPRAMIDE HCL 10MG/2ML VIAL IV STA (14:00)
[2019-05-29 14:11] LABS: BASOPHILS % 1.1 % (0.0-2.0); HEMATOCRIT. 49.5 % (36.0-48.0); HEMOGLOBIN. 16.5 g/dL (12.0-16.0); LYMPHOCYTES % 26.6 % (20.0-50.0); MEAN CORPUSCULAR VOLUME 87.1 fL (81.0-99.0); MEAN PLATELET VOLUME 9.9 fl (7.4-10.4); MONOCYTES % 8.7 % (2.0-8.0); NEUTROPHILS % 59.6 % (40.0-76.0); PLATELET 187 x1000/uL (130-400); RED BLOOD CELL COUNT 5.68 mill/uL (4.2-5.4); RED CELL DISTRIBUTION WIDTH 14.7 % (11.6-14.6)
[2019-05-29 14:24] LABS: CHLORIDE 108 mEq/L (98-107)
[2019-05-29 14:50] LABS: CLARITY URINE CLEAR (CLEAR); COLOR URINE YELLOW (YELLOW); KETONES URINE NEGATIVE (NEGATIVE); LEUKOCYTE ESTERASE URINE 1+ (NEGATIVE); NITRITE URINE NEGATIVE (NEGATIVE); OCCULT BLOOD URINE NEGATIVE (NEGATIVE); PH URINE 5.5 (4.5-8.0); PROTEIN URINE NEGATIVE (NEGATIVE); SPECIFIC GRAVITY URINE 1.009 (1.005-1.030); UROBILINOGEN URINE 0.2 E.U./dL (0.2-1.0)
[2019-05-29] MEDS ORDERED: IOHEXOL-300 100 ML BOTTLE ONE (16:50)
[2019-05-30] MEDS ORDERED: ADENOSINE 3 MG/ML 2ML VIAL IV ONE (07:21)
[2019-05-30] MEDS ORDERED: DILTIAZEM HCL 5MG/ML 5ML VIAL IV ONE ×2 (07:32→08:15)
[2019-05-30] MEDS ORDERED: DILTIAZEM HCL 60MG TABLET PO ONE (08:15)
[2019-05-30 08:19] LABS: BASOPHILS % 1.2 % (0.0-2.0); EOSINOPHILS % 2.4 % (0.0-5.0); HEMATOCRIT. 47.4 % (36.0-48.0); HEMOGLOBIN. 15.7 g/dL (12.0-16.0); LYMPHOCYTES % 17.9 % (20.0-50.0); MEAN CORPUSCULAR HEMOGLOBIN 28.8 pg (28.0-32.0); MEAN CORPUSCULAR VOLUME 86.8 fL (81.0-99.0); MEAN PLATELET VOLUME 9.6 fl (7.4-10.4); MONOCYTES % 7.9 % (2.0-8.0); NEUTROPHILS % 70.6 % (40.0-76.0); PLATELET 190 x1000/uL (130-400); RED BLOOD CELL COUNT 5.45 mill/uL (4.2-5.4); RED CELL DISTRIBUTION WIDTH 14.4 % (11.6-14.6)
[2019-05-30 08:23] LABS: CHLORIDE 108 mEq/L (98-107)
[2019-05-30 13:45] VITALS: BP 117/55
== END 2019-05-30 13:55 | disposition home or self-care (01) ==
LOC: ER 12:47
DX: I48.20 Chronic atrial fibrillation, unspecified (principal); R10.31 Right lower quadrant pain; I10 Essential (primary) hypertension; Z79.01 Long term (current) use of anticoagulants
CPT/HCPCS: 36415; 74177; 80053; 81003; 83690; 84484; 85025; 93005; 96374; 96375; 99284; J0153; J2765; J3490; Q9967

== ENCOUNTER 2019-08-10 15:55 | Inpatient (IN) | payer OTHER ==
[~2019-08-10] VITALS: Ht 162.6 cm; Wt 76.7 kg
[2019-08-10] MEDS ORDERED: SODIUM CHLORIDE 0.9% 1,000 ML IV ONE (18:34)
[2019-08-10 19:20] LABS: BASOPHILS % 1.3 % (0.0-2.0); EOSINOPHILS % 1.8 % (0.0-5.0); MEAN CORPUSCULAR HEMOGLOBIN 28.4 pg (28.0-32.0); MEAN CORPUSCULAR VOLUME 87.2 fL (81.0-99.0); MEAN PLATELET VOLUME 9.2 fl (7.4-10.4); MONOCYTES % 11.6 % (2.0-8.0); NEUTROPHILS % 59.3 % (40.0-76.0); PLATELET 187 x1000/uL (130-400); RED BLOOD CELL COUNT 5.27 mill/uL (4.2-5.4); RED CELL DISTRIBUTION WIDTH 14.6 % (11.6-14.6)
[2019-08-10 19:26] LABS: CHLORIDE 108 mEq/L (98-107)
[2019-08-10] MEDS ORDERED: ENOXAPARIN 100MG/ML SYR SUBCUT ONE (22:45)
[2019-08-10] MEDS ORDERED: ASPIRIN 325MG TABLET PO ONE (22:45)
[2019-08-11 04:54] LABS: CLARITY URINE CLEAR (CLEAR); COLOR URINE YELLOW (YELLOW); KETONES URINE NEGATIVE (NEGATIVE); LEUKOCYTE ESTERASE URINE NEGATIVE (NEGATIVE); NITRITE URINE NEGATIVE (NEGATIVE); OCCULT BLOOD URINE NEGATIVE (NEGATIVE); PH URINE 6.5 (4.5-8.0); PROTEIN URINE NEGATIVE (NEGATIVE); UROBILINOGEN URINE 0.2 E.U./dL (0.2-1.0)
[2019-08-11 08:00] VITALS: BP 166/94
[2019-08-11] MEDS ORDERED: ACETAMINOPHEN 325MG TABLET PO PRN ×2 (08:15→10:45)
[2019-08-11 09:00] VITALS: BP 155/89
[2019-08-11] MEDS ORDERED: CLOPIDOGREL 75MG TABLET PO SCH (09:00)
[2019-08-11] MEDS: PANTOPRAZOLE 40MG DR TABLET PO SCH (09:22)
[2019-08-11 09:30] VITALS: BP 141/85
[2019-08-11] MEDS ORDERED: MAGNESIUM/ALUMINUM HYDROXIDE/SIMETHICONE 30ML UDC PO PRN (10:45)
[2019-08-11] MEDS ORDERED: DOCUSATE SODIUM 100MG CAPSULE PO PRN (10:45)
[2019-08-11] MEDS ORDERED: NA PHOS,M-B/NA PHOS,DI-BA ENEMA 118ML PR PRN (10:45)
[2019-08-11] MEDS ORDERED: ONDANSETRON HCL 4MG/2ML INJ IV PRN (10:45)
[2019-08-11] MEDS ORDERED: DIPHENHYDRAMINE 50MG/ML VIAL IV PRN (10:45)
[2019-08-11] MEDS ORDERED: CLONIDINE 0.1MG TABLET PO PRN (10:45)
[2019-08-11] MEDS ORDERED: GUAIFENESIN 200MG/10ML SUGAR FREE UDC PO PRN (10:45)
[2019-08-11] MEDS ORDERED: HYDROCODONE/ACETAMINOPHEN 5/325MG TABLET PO PRN (10:45)
[2019-08-11] MEDS ORDERED: IPRATROPIUM/ALBUTEROL 0.5-3(2.5)MG/3ML NEB NEB PRN (10:45)
[2019-08-11] MEDS ORDERED: ACETAMINOPHEN 650MG SUPP PR PRN (10:45)
[2019-08-11] MEDS ORDERED: LORAZEPAM 0.5MG TABLET PO PRN (10:45)
[2019-08-11 11:27] LABS: BASOPHILS % 0.7 % (0.0-2.0); EOSINOPHILS % 1.5 % (0.0-5.0); HEMATOCRIT. 41.9 % (36.0-48.0); HEMOGLOBIN. 14.1 g/dL (12.0-16.0); LYMPHOCYTES % 20.9 % (20.0-50.0); MEAN CORPUSCULAR HEMOGLOBIN 29.1 pg (28.0-32.0); MEAN CORPUSCULAR VOLUME 86.6 fL (81.0-99.0); MEAN PLATELET VOLUME 9.6 fl (7.4-10.4); MONOCYTES % 10.4 % (2.0-8.0); NEUTROPHILS % 66.5 % (40.0-76.0); PLATELET 163 x1000/uL (130-400); RED BLOOD CELL COUNT 4.84 mill/uL (4.2-5.4); RED CELL DISTRIBUTION WIDTH 14.4 % (11.6-14.6)
[2019-08-11 12:00] VITALS: BP 156/90
[2019-08-11] MEDS: DEXT 5%/0.9% NACL 1,000 ML IV SCH ×2 (12:23→22:25)
[2019-08-11 13:02] LABS: T4 FREE 1.1 ng/dL (0.76-1.46)
[2019-08-11 13:03] LABS: INR 1.1; PROTHROMBIN TIME 11.3 sec (9.6-11.0)
[2019-08-11 14:06] LABS: *COCAINE SCREEN URINE NEGATIVE (NEGATIVE); METHADONE URINE SCREEN NEGATIVE (NEGATIVE); OPIATES URINE SCREEN NEGATIVE (NEGATIVE); PHENCYCLIDINE URINE SCREEN NEGATIVE (NEGATIVE)
[2019-08-11 14:07] LABS: *AMPHETAMINES SCREEN URINE NEGATIVE (NEGATIVE); CANNABINOID URINE SCREEN NEGATIVE (NEGATIVE)
[2019-08-11 14:08] LABS: *BARBITURATES SCREEN URINE NEGATIVE (NEGATIVE)
[2019-08-11 14:09] LABS: *BENZODIAZEPINES SCREEN URINE NEGATIVE (NEGATIVE)
[2019-08-11 16:00] VITALS: BP 131/92
[2019-08-11] MEDS: RIVAROXABAN 15 MG TABLET PO SCH (17:23)
[2019-08-11] MEDS: DILTIAZEM HCL 30MG TABLET PO SCH ×2 (17:23→22:24)
[2019-08-11 17:44] LABS: CREATINE KINASE 55 IU/L (26-192)
[2019-08-11 17:45] LABS: CREATINE KINASE MB FRACTION < 1.0 ng/mL (0.5-3.6)
[2019-08-11 20:00] VITALS: BP 174/106
[2019-08-12] VITALS: BP 142/103
[2019-08-12 04:00] VITALS: BP 148/99
[2019-08-12] MEDS: DILTIAZEM HCL 30MG TABLET PO SCH ×3 (06:48→21:35)
[2019-08-12 07:09] LABS: BASOPHILS % 0.5 % (0.0-2.0); EOSINOPHILS % 1.2 % (0.0-5.0); HEMATOCRIT. 42.9 % (36.0-48.0); HEMOGLOBIN. 14.2 g/dL (12.0-16.0); LYMPHOCYTES % 16.2 % (20.0-50.0); MEAN CORPUSCULAR HEMOGLOBIN 28.7 pg (28.0-32.0); MEAN CORPUSCULAR VOLUME 86.7 fL (81.0-99.0); MEAN PLATELET VOLUME 9.1 fl (7.4-10.4); MONOCYTES % 10.8 % (2.0-8.0); NEUTROPHILS % 71.3 % (40.0-76.0); PLATELET 182 x1000/uL (130-400); RED BLOOD CELL COUNT 4.95 mill/uL (4.2-5.4); RED CELL DISTRIBUTION WIDTH 14.4 % (11.6-14.6)
[2019-08-12 07:13] LABS: CHLORIDE 109 mEq/L (98-107)
[2019-08-12 07:22] LABS: LDL CHOLESTEROL 111 mg/dL (5-100)
[2019-08-12 07:23] LABS: CREATINE KINASE 36 IU/L (26-192); CREATINE KINASE MB FRACTION < 1.0 ng/mL (0.5-3.6); HDL CHOLESTEROL 37 mg/dL (40-59); T4 FREE 1.08 ng/dL (0.76-1.46)
[2019-08-12 08:00] VITALS: BP 135/92
[2019-08-12] MEDS: PANTOPRAZOLE 40MG DR TABLET PO SCH (09:43)
[2019-08-12] MEDS: DEXT 5%/0.9% NACL 1,000 ML IV SCH (10:40)
[2019-08-12 12:00] VITALS: BP 139/87
[2019-08-12 16:00] VITALS: BP 131/85
[2019-08-12] MEDS: RIVAROXABAN 15 MG TABLET PO SCH (17:41)
[2019-08-12 20:00] VITALS: BP 150/89
[2019-08-13] MEDS ORDERED: FAMOTIDINE 20MG TABLET PO SCH (07:40)
== END 2019-08-12 22:12 | DRG 861 ==
LOC: ER 15:55 → 7WST 08-11 01:37 → EDBEDREQ 08-11 02:06 → ENRESERV 08-11 03:59
PROVIDERS: ADMIT Internal Medicine; ATTEND Internal Medicine
DX: R53.1 Weakness (principal); G93.40 Encephalopathy, unspecified; I27.20 Pulmonary hypertension, unspecified; I48.20 Chronic atrial fibrillation, unspecified; I10 Essential (primary) hypertension; K21.9 Gastro-esophageal reflux disease without esophagitis; R62.7 Adult failure to thrive; F03.90 Unspecified dementia, unspecified severity, without behavioral disturbance, psychotic disturbance, mood disturbance, and anxiety; S90.32XA Contusion of left foot, initial encounter; W18.39XA Other fall on same level, initial encounter; Z88.6 Allergy status to analgesic agent; Z90.710 Acquired absence of both cervix and uterus; Z90.49 Acquired absence of other specified parts of digestive tract; Z87.81 Personal history of (healed) traumatic fracture; Z79.01 Long term (current) use of anticoagulants; Y93.89 Activity, other specified; Y92.89 Other specified places as the place of occurrence of the external cause; Y99.8 Other external cause status
CPT/HCPCS: 36415; 71045; 73100; 73630; 80048; 80053; 80061; 80305; 81003; 82550; 82553; 84439; 84443; 84484; 85025; 93005; 93306; 93970; 97162; 99285; A6261; J7030; J7042

== ENCOUNTER 2020-02-18 11:23 | Emergency (ER) | payer OTHER ==
[~2020-02-18] VITALS: Ht 165.1 cm; Wt 91.0 kg
[2020-02-18] MEDS ORDERED: SODIUM CHLORIDE 0.9% 1,000 ML IV ONE (13:07)
[2020-02-18] MEDS ORDERED: KETOROLAC 30MG/ML VIAL IV STA (13:07)
[2020-02-18 13:21] LABS: CHLORIDE 108 mEq/L (98-107)
[2020-02-18 13:24] LABS: CLARITY URINE CLEAR (CLEAR); COLOR URINE YELLOW (YELLOW); KETONES URINE NEGATIVE (NEGATIVE); LEUKOCYTE ESTERASE URINE TRACE (NEGATIVE); NITRITE URINE NEGATIVE (NEGATIVE); OCCULT BLOOD URINE NEGATIVE (NEGATIVE); PH URINE 8.5 (4.5-8.0); PROTEIN URINE NEGATIVE (NEGATIVE); UROBILINOGEN URINE 0.2 E.U./dL (0.2-1.0)
[2020-02-18 14:03] LABS: BASOPHILS % 1.3 % (0.0-2.0); EOSINOPHILS % 4.6 % (0.0-5.0); HEMATOCRIT. 43.7 % (36.0-48.0); HEMOGLOBIN. 14.6 g/dL (12.0-16.0); MEAN CORPUSCULAR HEMOGLOBIN 28.7 pg (28.0-32.0); MEAN CORPUSCULAR VOLUME 86.2 fL (81.0-99.0); MEAN PLATELET VOLUME 8.9 fl (7.4-10.4); MONOCYTES % 10.7 % (2.0-8.0); NEUTROPHILS % 57.4 % (40.0-76.0); PLATELET 176 x1000/uL (130-400); RED BLOOD CELL COUNT 5.08 mill/uL (4.2-5.4); RED CELL DISTRIBUTION WIDTH 14.2 % (11.6-14.6)
[2020-02-18 17:30] VITALS: BP 160/100
== END 2020-02-18 18:40 | disposition home or self-care (01) ==
LOC: ER 11:37
DX: R10.9 Unspecified abdominal pain (principal); R30.0 Dysuria; K21.9 Gastro-esophageal reflux disease without esophagitis; I10 Essential (primary) hypertension; I69.354 Hemiplegia and hemiparesis following cerebral infarction affecting left non-dominant side; I48.91 Unspecified atrial fibrillation; Z88.6 Allergy status to analgesic agent; Z90.49 Acquired absence of other specified parts of digestive tract; Z90.710 Acquired absence of both cervix and uterus
CPT/HCPCS: 36415; 71045; 74176; 80053; 81003; 83690; 84484; 85025; 87086; 93005; 96374; 99285; J1885; J7030